=== PATIENT | female | born 1970 | race Hispanic/Latino ===

== ENCOUNTER 2021-06-05 08:46 | Emergency (ER) | payer OTHER ==
[~2021-06-05] VITALS: Ht 157.5 cm; Wt 74.8 kg
[2021-06-05 09:54] VITALS: BP 134/85
[2021-06-05] MEDS ORDERED: CYCL10TA16 PO (09:57)
== END 2021-06-05 10:02 | disposition home or self-care (01) ==
LOC: EDH 08:46
DX: S13.4XXA Sprain of ligaments of cervical spine, initial encounter (principal); S09.90XA Unspecified injury of head, initial encounter; V49.49XA Driver injured in collision with other motor vehicles in traffic accident, initial encounter; Y93.89 Activity, other specified; Y92.89 Other specified places as the place of occurrence of the external cause; Y99.8 Other external cause status
CPT/HCPCS: 70450; 72125